=== PATIENT | female | born 1960 ===

== ENCOUNTER 2017-11-16 09:42 | Emergency (ER) | payer BC ==
[2017-11-16 09:43] VITALS: BMI 24.2
[2017-11-16 09:50] VITALS: RESP 18; TEMP 98.2
[2017-11-16] MEDS ORDERED: Sodium Chloride 0.9% 1,000 ML IV STA (10:12)
--- NOTE | 2017-11-16 10:41 | ED PDOC ---
Arrival/HPI - General Historian: Patient - History of Present Illness Time/Duration: < week Symptom Course: Unchanged Quality: Aching, Tightness Severity Level: 6 - General Chief Complaint: Abdominal Pain Time Seen by Provider: 11/16/17 09:50 - History of Present Illness Narrative History of Present Illness (Text): 11/16/17 10:23 57F pmhx significant for cholelithiasis presents to [facility] ED w/ Mid-epigastric & RUQ abdominal pain that has been consistent since Sunday. Patient has been unable to eat or drink on a consistent basis. Diet has been soup and crackers. Associated nausea, no vomiting. Denies Diarrhea, recent sick contacts, changes in urinary habits. Pt also states no BM since Sunday. Of note: pt has seen Dr. Petersen in the past and is scheduled for cholecystectomy on November 26. Since pain has been persistent w/ minimal to no relief, decided to come to ED. Of note: sees Dr. Evans for dysphasia ([facility]) Past Medical History - Provider Review Nursing Documentation Reviewed: Yes - Travel History Have you recently traveled outside [place] w/in the past 3 mons?: No - Reproductive Menopause: Yes - Cardiac Hx Cardiac Disorders: No - Pulmonary Hx Respiratory Disorders: No - Neurological Hx Neurological Disorder: No - HEENT Hx HEENT Disorder: No - Renal Hx Renal Disorder: No - Endocrine/Metabolic Hx Endocrine Disorders: No - Hematological/Oncological Hx Blood Disorders: No - Integumentary Hx Dermatological Disorder: No - Musculoskeletal/Rheumatological Hx Musculoskeletal Disorders: No - Gastrointestinal Hx Gastrointestinal Disorders: Yes Other/Comment: Gall Bladder stone - Psychiatric Hx Emotional Abuse: No Hx Physical Abuse: No Hx Substance Use: No - Anesthesia Hx Anesthesia Reactions: No Hx Malignant Hyperthermia: No - Suicidal Assessment Feels Threatened In Home Enviroment: No Family/Social History - Physician Review Nursing Documentation Reviewed: Yes Family/Social History: Other (non-contributory) Smoking Status: Never Smoked Hx Alcohol Use: No Hx Substance Use: No Allergies/Home Meds Allergies/Adverse Reactions: Allergies No Known Allergies Allergy (Verified 11/16/17 09:50) Review of Systems - Physician Review All systems were reviewed & negative as marked: Yes - Review of Systems Constitutional: Night Sweats. absent: Weight Change, Fevers Eyes: absent: Vision Changes, Photophobia ENT: absent: Hearing Changes, Tinnitus, TMJ Pain Respiratory: absent: SOB, Cough, Sputum Cardiovascular: absent: Chest Pain, Palpitations, Edema, Calf Pain Gastrointestinal: Abdominal Pain (diffuse), Constipation. absent: Diarrhea, Nausea, Vomiting Genitourinary Female: absent: Dysuria, Hematuria, Urine Output Changes Musculoskeletal: absent: Arthralgias Skin: absent: Rash Neurological: absent: Headache, Dizziness Endocrine: absent: Diaphoresis, Polyuria Hemo/Lymphatic: absent: Adenopathy Physical Exam Vital Signs Reviewed: Yes Temperature: Afebrile Blood Pressure: Normal Pulse: Regular Respiratory Rate: Normal Appearance: Positive for: Well-Appearing, Non-Toxic, Comfortable Pain Distress: None Mental Status: Positive for: Alert and Oriented X 3 - Systems Exam Head: Present: Atraumatic Extroacular Muscles: Present: EOMI Conjunctiva: Present: Normal Mouth: Present: Moist Mucous Membranes Neck: Present: Normal Range of Motion. No: JVD Respiratory/Chest: Present: Clear to Auscultation, Good Air Exchange. No: Respiratory Distress, Accessory Muscle Use Cardiovascular: Present: Regular Rate and Rhythm, Normal S1, S2 Abdomen: Present: Tenderness, Other (Negative drew). No: Distention, Peritoneal Signs Upper Extremity: Present: Normal Inspection, NORMAL PULSES. No: Cyanosis, Edema Lower Extremity: Present: Normal Inspection. No: Edema, CALF TENDERNESS Neurological: Present: GCS=15, Speech Normal Skin: Present: Warm, Normal Color Psychiatric: Present: Alert, Oriented x 3 Vital Signs Temp Pulse Resp BP Pulse Ox 11/16/17 13:03 66 18 142/79 100 11/16/17 11:03 65 18 144/85 100 11/16/17 09:45 98.2 F 91 H 18 147/98 H 99 Medical Decision Making - Lab Interpretations I have reviewed the lab results: Yes Interpretation: No clinic. lab abnormalty - RAD Interpretation Construction Rep: Radiologist - EKG Interpretation Interpreted by ED Physician: Yes Type: 12 lead EKG Comparison: No previous EKG avail. ED Course and Treatment: 11/16/17 10:46 Symptomatic cholelithasis vs Acute Cholecystitis -CBC/CMP/Lipase -Zofran/Pepcid/IVF -UA/POC -Pre-Op -Re-eval and reasses Pain controlled. Tolerating PO diet. Surgery evaluated the patient. Discussed case in detail and okay to send home on anti-emetic and analgesic. Plan for outpatient cholecystectomy. Will follow up w/ Dr. Petersen surgical attending as outpatient. Patient has agreed to plan set forth. (Kevin Merino) 11/16/17 13:26 57 yo female with abdominal pain. Agree with resident history and physical, assessment and plan. Labs reviewed. Potassium low and replaced with PO Potassium. Patient's pain controlled. She was able to tolerate PO fluids. Abdominal re-exam was normal. No tenderness. No distention. BSx4. Abdominal US: Patient Name / ID : MARCELO CARRASQUILLO / [id number] IMPRESSION: Cholelithiasis. No sonographic evidence of acute cholecystitis. Since patient returned with abdominal pain with known galls Case was discussed with Dr. Sykes who came to evaluate patient. She evaluated pt and discussed case with Dr. Petersen. Dr. Petersen has pt scheduled for surgery on Sunday. Patient did not want to stay in the hospital today. She said she was feeling better and would rather have the surgery as scheduled on Sunday. We advised her to return tot he ED if she has any worsening symptoms or concerns. (Papo Hoffman) - Lab Interpretations Narrative Lab Interpretation (Text): 11/16/17 13:27 No elevated WBC- indicates no sign of active infection Chemistry no clinical abnormalities. T.Bili 0.8, AST and ALT w/n normal limits ( Kevin Merino) Lab Results: 11/16/17 10:18 11/16/17 10:18 Lab Results 11/16/17 11:23: Blood Type Confirm A POSITIVE 11/16/17 10:18: Blood Type A POSITIVE, Antibody Screen Negative, BBK History Checked No verified bt 11/16/17 10:18: Sodium 142, Potassium 3.4 L, Chloride 101, Carbon Dioxide 29, Anion Gap 15, BUN 9, Creatinine 0.6 L, Est GFR ( Amer) > 60, Est GFR (Non -Af Amer) > 60, Random Glucose 100, Calcium 10.2, Total Bilirubin 0.8, AST 35, ALT 34, Alkaline Phosphatase 188 H, Total Protein 8.9 H, Albumin 4.5, Globulin 4.4, Albumin/Globulin Ratio 1.0 L, Lipase 31 11/16/17 10:18: Urine Color Yellow, Urine Appearance Clear, Urine pH 6.0, Ur Specific [place] 1.025, Urine Protein 30 H, Urine Glucose (UA) Negative, Urine Ketones >=80, Urine Blood Large H, Urine Nitrate Negative, Urine Bilirubin Small H, Urine Urobilinogen 0.2, Ur Leukocyte Esterase Small H, Urine RBC 5 - 10 , Urine WBC 10 - 15, Ur Epithelial Cells 6 - 8, Amorphous Sediment Few, Urine Bacteria Many, Fine Granular Casts 0 - 2, Coarse Granular Casts Trace H, Urine Other Uyeast 11/16/17 10:18: PT 12.7 H, INR 1.10 H, APTT 32.8 11/16/17 10:18: WBC 6.8, RBC 4.77, Hgb 13.4, Hct 39.7, MCV 83.2, MCH 28.1, MCHC 33.8, RDW 12.9, Plt Count 265, MPV 10.3, Gran % 64.6, Lymph % (Auto) 29.1, [place] % (Auto) 5.6, Eos % (Auto) 0.6 L, Baso % (Auto) 0.1, Gran # 4.38, Lymph # (Auto ) 2.0, [place] # (Auto) 0.4, Eos # (Auto) 0.0, Baso # (Auto) 0.01 - RAD Interpretation Narrative RAD Interpretations (Text): 11/16/17 13:28 ABD US: Cholelithiasis. No sonographic evidence of acute cholecystitis (Kevin Meirno) Radiology Orders: 11/16/17 10:08 CHEST PORTABLE [RAD] Stat 11/16/17 11:36 GALLBLADDER & COMMON DUCT [US] Stat - EKG Interpretation EKG Interpretation (Text): 11/16/17 10:56 EKG- NSR, no ST or GTc changes. Normal EKG (Kevin Merino) - Medication Orders Current Medication Orders: Discontinued Medications Famotidine (Pepcid) 20 mg IVP STAT STA Stop: 11/16/17 10:09 Last Admin: 11/16/17 10:37 Dose: 20 mg IVP Administration Document 11/16/17 10:37 LA (Rec: 11/16/17 10:37 LA [id number]) Charges for Administration # of IVP Administrations 1 Sodium Chloride (Sodium Chloride 0.9%) 1,000 mls @ 999 mls/hr IV .Q1H1M STA Stop: 11/16/17 11:12 Last Admin: 11/16/17 10:32 Dose: 999 mls/hr eMAR Start Stop Document 11/16/17 10:32 LA (Rec: 11/16/17 10:32 LA [id number]) Intravenous Solution Start Date 11/16/17 Start Time 10:32 End Date 11/16/17 End time 11:33 Total Infusion Time 61 Ceftriaxone Sodium (Rocephin 1 Gram Ivpb) 1 gm in 100 mls @ 100 mls/hr IVPB ONCE ONE PRN Reason: Protocol Stop: 11/16/17 12:41 Last Admin: 11/16/17 12:22 Dose: 100 mls/hr eMAR Start Stop Document 11/16/17 12:22 LA (Rec: 11/16/17 12:23 LA [id number]) Intravenous Solution Start Date 11/16/17 Start Time 12:23 End Date 11/16/17 End time 13:23 Total Infusion Time 60 Ketorolac Tromethamine (Toradol) 30 mg IVP STAT STA Stop: 11/16/17 13:32 Last Admin: 11/16/17 13:42 Dose: 30 mg MAR Pain Assessment Document 11/16/17 13:42 LA (Rec: 11/16/17 13:46 LA [id number]) Pain Reassessment Is this a pain reassessment? No Sleep Is patient sleeping during reassessment? No Presence of Pain Presence of Pain Yes Pain Scale Used Pain Scale Used Numeric Location Left, Right or Bilateral Right Upper or Lower Upper Pain Location Body Site Abdomen Description Description Intermittent Intensity of Pain at present 5 Pain Behavior Guarding IVP Administration Document 11/16/17 13:42 LA (Rec: 11/16/17 13:46 LA [id number]) Charges for Administration # of IVP Administrations 1 Ondansetron HCl (Zofran Inj) 4 mg IVP STAT STA Stop: 11/16/17 10:09 Last Admin: 11/16/17 10:37 Dose: 4 mg IVP Administration Document 11/16/17 10:37 LA (Rec: 11/16/17 10:37 LA [id number]) Charges for Administration # of IVP Administrations 1 Ondansetron HCl (Zofran Inj) 4 mg IVP STAT STA Stop: 11/16/17 12:59 Last Admin: 11/16/17 13:24 Dose: 4 mg IVP Administration Document 11/16/17 13:24 LIBBY (Rec: 11/16/17 13:24 LIBBY [id number]) Charges for Administration # of IVP Administrations 1 Potassium Chloride (K-Dur 20 Meq Er Tab) 40 meq PO STAT STA Stop: 11/16/17 11:41 Last Admin: 11/16/17 11:46 Dose: 40 meq - PA / [employer] / Resident Statement MD/DO has reviewed & agrees with the documentation as recorded. MD/DO has examined the patient and agrees with the treatment plan. Disposition/Present on Arrival - Present on Arrival Any Indicators Present on Arrival: No History of DVT/PE: No History of Uncontrolled Diabetes: No Urinary Catheter: No History of Decub. Ulcer: No History Surgical Site Infection Following: None - Disposition Have Diagnosis and Disposition been Completed?: Yes Disposition Time: 13:26 Patient Plan: Discharge - Disposition Diagnosis: Biliary colic, Cholelithiasis Disposition: HOME/ ROUTINE Condition: GOOD Discharge Instructions (ExitCare): Gallstones (DC) Additional Instructions: Thank you for letting us take care of you today. You were treated for Cholelithiasis/Biliary Colic. The emergency medical care you received today was directed at your acute symptoms. If you were prescribed any medication, please fill it and take as directed. It may take several days for your symptoms to resolve. Return to the Emergency Department if your symptoms worsen, do not improve, or if you have any other problems. Please contact your doctor or call one of the physicians/clinics you have been referred to that are listed on the Patient Visit Information form that is included in your discharge packet. Bring any paperwork you were given at discharge with you along with any medications you are taking to your follow up visit. Our treatment cannot replace ongoing medical care by a primary care provider (PCP) outside of the emergency department. Thank you for allowing the [facility] team to be part of your care today. Ultrasound shows: . Prescriptions: Ondansetron [Zofran] 4 mg PO Q6H PRN #12 tab PRN Reason: Nausea/Vomiting traMADol [Ultram] 50 mg PO Q6 PRN #10 tab PRN Reason: Pain, Moderate (4-7) Referrals: Bassem Grijalva MD [Primary Care Provider] - Follow up with primary Forms: [employer] ([place])
--- NOTE | 2017-11-16 10:50 | RAD ---
HISTORY: Pre-op COMPARISON: No prior. FINDINGS: LUNGS: No active pulmonary disease. PLEURA: No significant pleural effusion identified, no pneumothorax apparent. CARDIOVASCULAR: Normal. OSSEOUS STRUCTURES: No significant abnormalities. VISUALIZED UPPER ABDOMEN: Normal. OTHER FINDINGS: None. IMPRESSION: No active disease.
[2017-11-16 11:00] LABS: BASO # 0.01 K/mm3 (0.0-2.0); BASO % 0.1 % (0.0-3.0); EOS % 0.6 % (1.5-5.0); GRAN # 4.38 (1.4-6.5); GRAN % 64.6 % (50.0-68.0); HEMOGLOBIN 13.4 g/dL (12.0-16.0); LYMPH % 29.1 % (22.0-35.0); MEAN CELL VOLUME 83.2 fl (80.0-105.0); MEAN CORPUSCULAR HEMOGLOBIN 28.1 pg (25.0-35.0); MEAN CORPUSCULAR HGB CONC 33.8 g/dl (31.0-37.0); MEAN PLATELET VOLUME 10.3 fl (7.0-11.0); MONO # 0.4 (0.1-0.6); MONO % 5.6 % (1.0-6.0); RBC 4.77 10^6/uL (3.5-6.1); RED CELL DISTRIBUTION WIDTH 12.9 % (11.5-14.5); WHITE BLOOD COUNT 6.8 10^3/ul (4.5-11.0)
[2017-11-16 11:06] VITALS: O2SAT 100
[2017-11-16 11:10] LABS: URINE APPEARANCE CLEAR (CLEAR); URINE BILIRUBIN SMALL (NEGATIVE); URINE BLOOD LARGE (NEGATIVE); URINE COLOR YELLOW (YELLOW); URINE GLUCOSE (UA) NEGATIVE (NEGATIVE); URINE LEUKOCYTE ESTERASE SMALL Leu/uL (NEGATIVE); URINE PROTEIN 30 mg/dL (<30 mg/dL); URINE UROBILINOGEN 0.2 E.U./dL (<1 E.U./dL)
[2017-11-16 11:13] LABS: URINE BACTERIA MANY (NEG)
[2017-11-16 11:14] LABS: ALBUMIN 4.5 g/dL (3.0-4.8); ALT/SGPT 34 U/L (7-56); AST/SGOT 35 U/L (14-36); BLOOD UREA NITROGEN 9 mg/dL (7-21); CALCIUM 10.2 mg/dL (8.4-10.5); GFR AFRICAN-AMERICAN > 60; GFR NON-AFRICAN AMERICAN > 60; LIPASE 31 U/L (23-300); URINE COARSE GRANULAR CAST TRACE /hpf (0-2); URINE FINE GRANULAR CAST 0 - 2 /hpf (0-2)
[2017-11-16 11:15] LABS: URINE AMORPHOUS SEDIMENT FEW
[2017-11-16 11:17] LABS: INR 1.1 (0.93-1.08); PARTIAL THROMBOPLASTIN TIME 32.8 Seconds (25.1-36.5); PROTHROMBIN TIME 12.7 SECONDS (9.4-12.5)
[2017-11-16] MEDS ORDERED: Potassium Chloride 20 mEq ER Tab PO STA (11:40)
[2017-11-16] MEDS ORDERED: cefTRIAXone 1 gm 1 GM/100 ML BAG IVPB ONE (11:42)
--- NOTE | 2017-11-16 12:11 | US ---
HISTORY: Persistent RUQ pain COMPARISON: None. TECHNIQUE: Sonographic evaluation of the right upper quadrant of the abdomen. FINDINGS: LIVER: Measures 10.7 cm in length. Patent portal vein. Portal venous flow: Hepatopetal. Unremarkable echogenicity of the liver parenchyma. No mass. No intrahepatic bile duct dilatation. GALLBLADDER: Large gallstone impacted in the neck of the gallbladder approximately 1.6 cm. COMMON BILE DUCT: Measures 3.1 mm. No stones. No dilatation. PANCREAS: Unremarkable as visualized. No mass. No ductal dilatation. RIGHT KIDNEY: Measures 4.3 x 9.6 cm in length. Normal echogenicity. No calculus, mass, or hydronephrosis. AORTA: No aneurysmal dilatation. IVC: Unremarkable. OTHER FINDINGS: None . IMPRESSION: Cholelithiasis. No sonographic evidence of acute cholecystitis.
[2017-11-16 13:03] VITALS: BP 142/79; PULSE 66
--- NOTE | 2017-11-16 15:32 | CARD ---
APPROVED REPORT EKG Measurement Heart [id number] <Conclusion> Normal sinus rhythm Normal ECG
== END 2017-11-16 14:21 | disposition home or self-care (01) ==
LOC: ED 09:42
DX: K80.70 Calculus of gallbladder and bile duct without cholecystitis without obstruction (principal)
CPT/HCPCS: 71045; 76705; 80053; 81001; 83690; 85025; 85610; 85730; 86850; 86900; 87040; 87086; 87181; 93005; 96361; 96365; 96375; 96376; 99285; J0696; J1885; J2405; J7040

== ENCOUNTER 2017-11-27 06:33 | Day surgery (SDC) | payer BC ==
[2017-11-27 07:32] VITALS: BMI 24.2
[2017-11-27] MEDS ORDERED: Propofol 10 mg/ml Inj (20 ML) ONE (08:12)
[2017-11-27] MEDS ORDERED: Midazolam 2 MG/2 ML VIAL ONE (08:13)
[2017-11-27] MEDS ORDERED: Lidocaine 2% Inj (20ml) ONE (08:14)
[2017-11-27] MEDS ORDERED: Rocuronium 10 mg/ml (5 ml) ONE (08:15)
[2017-11-27] MEDS ORDERED: Glycopyrrolate 0.2 mg/ml (2ml vial) ONE (09:34)
[2017-11-27] MEDS ORDERED: Neostigmine Methylsulfate 3mg/3ml Syringe IV ONE (09:34)
--- NOTE | 2017-11-27 09:58 | PCM.SURG1 ---
Surgeon's Initial Post Op Note - Surgeon's Notes Surgeon: Nicola Survey Supervisor: Farzaneh PGY3, Onel PGY2 Type of Anesthesia: General Endo, Local Pre-Operative Diagnosis: Biliary Colic Operative Findings: Intra-hepatic gallbladder Post-Operative Diagnosis: Same Operation Performed: Laparoscopic cholecystectomy Specimen/Specimens Removed: gallbladder Estimated Blood Loss: EBL {In ML}: 30 Blood Products Given: N/A Drains Used: No Drains Post-Op Condition: Good Date of Surgery/Procedure: 11/27/17 Time of Surgery/Procedure: 09:58
[2017-11-27] MEDS ORDERED: HYDROmorphone 0.5 mg/0.5 ml ISec IVP PRN (09:59)
[2017-11-27] MEDS ORDERED: Lactated Ringer's 1,000 ML IV SCH (10:00)
[2017-11-27] MEDS ORDERED: HYDROmorphone 0.5 mg/0.5 ml ISec ONE (10:14)
[2017-11-27] MEDS ORDERED: Oxycodone/Acetaminophen 5/325 mg Tab PO PRN (10:14)
[2017-11-27 11:09] VITALS: RESP 20; TEMP 97.4; O2SAT 99
[2017-11-27 11:57] VITALS: BP 128/80; PULSE 56
--- NOTE | 2017-11-28 21:25 | OP ---
PROCEDURE DATE: 11/27/2017 PREOPERATIVE DIAGNOSIS: Biliary colic. POSTOPERATIVE DIAGNOSIS: Biliary colic. PROCEDURE: Laparoscopic cholecystectomy. SURGEON: Kerry Petersen MD ASSISTANTS: Dr. Moy and Dr. Sykes. TYPE OF ANESTHESIA: General. DESCRIPTION OF OPERATION: With the patient in the supine position under adequate general anesthesia, the abdomen was prepped and draped in the usual sterile manner. Veress needle puncture was performed at the umbilicus with insufflation to 15 cm water pressure of CO2 and a 10 mm laparoscopic trocar was inserted via an infraumbilical incision. Under direct vision, additional trocars were inserted in the epigastrium and right costal margin. The gallbladder was visualized. It was moderately distended and appeared slightly thickened and the gallbladder was aspirated of 50 mL of clear white bile allowing the gallbladder fundus to be grasped and elevated. The infundibulum was grasped and retracted laterally and the cystic duct was dissected. The cystic duct was cleared down toward the junction with the common bile duct and viewed anteriorly and posteriorly for a view of safety. The cystic duct was then triply clipped and divided. The cystic artery was similarly identified and anterior and posterior branches were separately dissected and triply clipped and divided and the gallbladder was dissected free of the liver bed using electrocautery. The gallbladder was partially intrahepatic with minimal areolar tissue within the liver bed and the liver bed was inspected for hemostasis and cauterized and the dissection was completed. The gallbladder was placed in a specimen retrieval bag and removed via the umbilical port site. Right upper quadrant was irrigated and suctioned. The pneumoperitoneum was released and the trocars were removed. The umbilical port site was closed with a [id number] fascial sutures of 0 Vicryl. All incisions were closed with 4-0 Monocryl subcuticular sutures and Steri-Strips. Dry sterile dressings were applied. The patient tolerated the procedure well and transferred to the recovery room in stable condition. Estimated blood loss for the procedure was 30 mL. Kerry Petersen MD [facility] CENTERAngela
== END 2017-11-27 14:45 | disposition home or self-care (01) ==
LOC: SDS 06:33
PROVIDERS: ATTEND Specialist
DX: K80.66 Calculus of gallbladder and bile duct with acute and chronic cholecystitis without obstruction (principal)
CPT/HCPCS: 47562; 88304; J0690; J1100; J1170; J1885; J2250; J2405; J2704; J2710; J2765; J3010; J7120 ×2